=== PATIENT | female | born 1955 | race Caucasian/White ===

== ENCOUNTER 2021-06-18 12:09 | Inpatient (IN) ==
[2021-06-18 13:44] LABS: Basophils % 0.2 % (0.0-0.8); Hematocrit 32.3 VOL% (35.7-47.0); Hemoglobin 10.7 GM/DL (12.0-16.0); Immature Granulocytes Absolute 0.31 #; Lymphocytes # 1.1 10*3/uL (1.4-4.0); Lymphocytes % 7.1 % (21.3-54.2); Mean Corpuscular HGB Conc 33.1 GM/DL (32-36); Mean Corpuscular Volume 81.8 FL (87-102); Mean Platelet Volume 8.5 FL (9.6-12.0); Monocytes % 5.2 % (1.7-12.7); Neutrophils % 85.5 % (38.7-73.9); Platelet Count 583 T/CUMM (130-400); Red Blood Count 3.95 MC/CUMM (3.8-5.5); White Blood Count 15.9 T/CUMM (4-12)
[2021-06-18 14:04] LABS: Calcium 7.9 MG/DL (8.5-10.1); Osmolality,Calculated 264.2 MOS/KG (273-304); Potassium 3.6 MMOL/L (3.5-5.1)
[2021-06-18] MEDS ORDERED: DIAZEPAM 5 MG TABLET PO ONE (15:31)
[2021-06-18] MEDS ORDERED: FAMOTIDINE 20 MG TABLET PO ONE (15:31)
[2021-06-18] MEDS ORDERED: LIDOCAINE 2% 5 ML VIAL ONE (15:45)
[2021-06-18] MEDS ORDERED: propofoL 200 MG/20 ML VIAL IV ONE (15:45)
[2021-06-18] MEDS ORDERED: fentaNYL 100 MCG/2 ML VIAL ONE (15:45)
[2021-06-18] MEDS ORDERED: MIDAZOLAM 2 MG/2 ML VIAL ONE (15:45)
[2021-06-18] MEDS ORDERED: ROCURONIUM 50 MG/5 ML VIAL IV ONE (16:14)
[2021-06-18] MEDS ORDERED: SUCCINYLCHOLINE 200 MG/10 ML VIAL ONE (16:14)
[2021-06-18] MEDS ORDERED: VANCOMYCIN 1,000 MG VIAL ONE (16:29)
[2021-06-18] MEDS ORDERED: SODIUM CHLORIDE 0.9% 250 ML IV ONE (16:39)
[2021-06-18] MEDS ORDERED: SEVOFLURANE 1 UNIT/15 MINUTE INH ONE ×2 (16:39→17:40)
[2021-06-18] MEDS ORDERED: NEOSTIGMINE 10 MG/10 ML VIAL ONE (17:06)
[2021-06-18] MEDS ORDERED: GLYCOPYRROLATE 0.4 MG/2 ML VIAL ONE (17:06)
[2021-06-18] MEDS ORDERED: SUGAMMADEX 200 MG/2 ML VIAL IV ONE (17:12)
[2021-06-18] MEDS ORDERED: MAGNESIUM HYDROXIDE SUSP 30 ML UDCUP PO PRN (17:47)
[2021-06-18] MEDS ORDERED: ONDANSETRON 4 MG/2 ML VIAL IV PRN (17:48)
[2021-06-18] MEDS ORDERED: LACTULOSE 20 GM/30 ML UDCUP PO PRN (17:48)
[2021-06-18] MEDS ORDERED: PROMETHAZINE 25 MG/1 ML VIAL IM PRN (17:48)
[2021-06-18] MEDS ORDERED: BISACODYL 10 MG SUPP RECTAL PRN (17:48)
[2021-06-18] MEDS ORDERED: diphenhydrAMINE CAP 25 MG CAPSULE PO PRN (17:48)
[2021-06-18] MEDS ORDERED: traMADol 50 MG TABLET PO PRN (17:50)
[2021-06-18] MEDS ORDERED: ONDANSETRON ODT 4 MG TABLET PO PRN (17:50)
[2021-06-18] MEDS ORDERED: ACETAMINOPHEN 500 MG TABLET PO PRN (17:50)
[2021-06-18] MEDS ORDERED: PROMETHAZINE 25 MG TABLET PO PRN (17:50)
[2021-06-18] MEDS ORDERED: GLUCAGON 1 MG VIAL IM PRN (18:15)
[2021-06-18] MEDS ORDERED: DEXTROSE 10% 250 ML BAG IV PRN (19:15)
[2021-06-18] MEDS ORDERED: MORPHINE 4 MG/1 ML VIAL IV PRN ×3 (19:16→19:17)
[2021-06-18] MEDS ORDERED: SULFAMETHOX/TRIMETHOPRIM 800-160 MG TABLET PO SCH (21:00)
[2021-06-18] MEDS: SODIUM CHLORIDE 0.9% 1,000 ML IV SCH (22:10)
[2021-06-18] MEDS: PIPERACILLIN/TAZOBACTAM 3,375 MG in SODIUM CHLORIDE 0.9% 100 ML IV SCH (22:10)
[2021-06-18] MEDS: NYSTATIN 500,000 UNIT/5 ML UDCUP SWISH/SWAL SCH (22:10)
[2021-06-18] MEDS: PRAMIPEXOLE 0.375 MG PO SCH (22:11)
[2021-06-19] MEDS: INSULIN LISPRO 100 UNIT/ML SUBCUT SCH ×5 (01:33→23:43)
[2021-06-19 05:56] LABS: Basophils % 0.2 % (0.0-0.8); Hemoglobin 8.5 GM/DL (12.0-16.0); Immature Granulocytes % 1.4 %; Immature Granulocytes Absolute 0.15 #; Lymphocytes # 1.8 10*3/uL (1.4-4.0); Lymphocytes % 17.1 % (21.3-54.2); Mean Corpuscular HGB Conc 32.7 GM/DL (32-36); Mean Corpuscular Volume 81.8 FL (87-102); Mean Platelet Volume 8.6 FL (9.6-12.0); Monocytes % 7.6 % (1.7-12.7); Neutrophils % 73.7 % (38.7-73.9); Platelet Count 412 T/CUMM (130-400); Red Blood Count 3.18 MC/CUMM (3.8-5.5); Red Cell Distribution Width 14.9 % (9.3-17.3); White Blood Count 10.7 T/CUMM (4-12)
[2021-06-19] MEDS ORDERED: VANCOMYCIN INJ 1,000 MG in SODIUM CHLORIDE 0.9% 250 ML IV SCH (06:00)
[2021-06-19 06:06] LABS: Calcium 6.9 MG/DL (8.5-10.1); Osmolality,Calculated 270.4 MOS/KG (273-304)
[2021-06-19] MEDS: PIPERACILLIN/TAZOBACTAM 3,375 MG in SODIUM CHLORIDE 0.9% 100 ML IV SCH ×3 (06:26→21:04)
[2021-06-19] MEDS ORDERED: CITALOPRAM 20 MG TABLET PO SCH (09:00)
[2021-06-19] MEDS: hydroCHLOROthiazide 25 MG TABLET PO SCH (09:27)
[2021-06-19] MEDS: PIOGLITAZONE 15 MG TABLET PO SCH (09:27)
[2021-06-19] MEDS: PANTOPRAZOLE 40 MG TABLET PO SCH (09:27)
[2021-06-19] MEDS: NYSTATIN 500,000 UNIT/5 ML UDCUP SWISH/SWAL SCH ×4 (09:27→21:03)
[2021-06-19] MEDS: ASPIRIN EC 81 MG TABLET PO SCH (09:27)
[2021-06-19] MEDS: VANCOMYCIN INJ 1,500 MG in SODIUM CHLORIDE 0.9% 500 ML IV SCH (11:41)
[2021-06-19] MEDS: SODIUM CHLORIDE 0.9% 1,000 ML IV SCH (18:33)
[2021-06-19] MEDS: PRAMIPEXOLE 0.375 MG PO SCH (21:05)
[2021-06-20] MEDS: PIPERACILLIN/TAZOBACTAM 3,375 MG in SODIUM CHLORIDE 0.9% 100 ML IV SCH ×3 (05:58→21:25)
[2021-06-20] MEDS: INSULIN LISPRO 100 UNIT/ML SUBCUT SCH ×3 (06:06→17:58)
[2021-06-20] MEDS: hydroCHLOROthiazide 25 MG TABLET PO SCH (08:52)
[2021-06-20] MEDS: PANTOPRAZOLE 40 MG TABLET PO SCH (08:52)
[2021-06-20] MEDS: ASPIRIN EC 81 MG TABLET PO SCH (08:52)
[2021-06-20] MEDS: PIOGLITAZONE 15 MG TABLET PO SCH (08:53)
[2021-06-20] MEDS: NYSTATIN 500,000 UNIT/5 ML UDCUP SWISH/SWAL SCH ×4 (08:54→20:00)
[2021-06-20] MEDS: VANCOMYCIN INJ 1,500 MG in SODIUM CHLORIDE 0.9% 500 ML IV SCH (11:02)
[2021-06-20] MEDS ORDERED: POTASSIUM CHLORIDE 20 MEQ TABLET PO PRN (14:52)
[2021-06-20] MEDS ORDERED: POTASSIUM CHLORIDE 20 MEQ TABLET PO ONE (15:32)
[2021-06-20] MEDS: PRAMIPEXOLE 0.375 MG PO SCH (20:11)
[2021-06-21] MEDS: INSULIN LISPRO 100 UNIT/ML SUBCUT SCH ×4 (01:52→17:15)
[2021-06-21 06:00] LABS: Basophils % 0.3 % (0.0-0.8); Eosinophils # 0.1 10*3/uL (0.0-0.87); Eosinophils % 0.8 % (0.00-10.9); Hematocrit 29.2 VOL% (35.7-47.0); Hemoglobin 9.5 GM/DL (12.0-16.0); Immature Granulocytes % 1.8 %; Immature Granulocytes Absolute 0.17 #; Lymphocytes # 2.5 10*3/uL (1.4-4.0); Lymphocytes % 27.2 % (21.3-54.2); Mean Corpuscular HGB Conc 32.5 GM/DL (32-36); Mean Corpuscular Volume 84.6 FL (87-102); Mean Platelet Volume 8.7 FL (9.6-12.0); Monocytes % 6.9 % (1.7-12.7); Platelet Count 394 T/CUMM (130-400); Red Blood Count 3.45 MC/CUMM (3.8-5.5); White Blood Count 9.3 T/CUMM (4-12)
[2021-06-21 06:13] LABS: Osmolality,Calculated 261.8 MOS/KG (273-304); Potassium 3.1 MMOL/L (3.5-5.1)
[2021-06-21] MEDS ORDERED: propofoL 200 MG/20 ML VIAL IV ONE (06:18)
[2021-06-21] MEDS ORDERED: fentaNYL 100 MCG/2 ML VIAL ONE (06:18)
[2021-06-21] MEDS ORDERED: LIDOCAINE 2% 5 ML VIAL ONE (06:18)
[2021-06-21] MEDS ORDERED: MIDAZOLAM 2 MG/2 ML VIAL ONE (06:18)
[2021-06-21] MEDS: PIPERACILLIN/TAZOBACTAM 3,375 MG in SODIUM CHLORIDE 0.9% 100 ML IV SCH (06:22)
[2021-06-21] MEDS ORDERED: DEXTROSE 50% 25 GM/50 ML SYRINGE IV ONE (06:44)
[2021-06-21] MEDS ORDERED: LACTATED RINGERS 1,000 ML IV SCH (07:00)
[2021-06-21] MEDS ORDERED: ROCURONIUM 50 MG/5 ML VIAL IV ONE (07:14)
[2021-06-21] MEDS ORDERED: SUCCINYLCHOLINE 200 MG/10 ML VIAL ONE (07:14)
[2021-06-21] MEDS ORDERED: ETOMIDATE 40 MG/20 ML VIAL IV ONE (07:14)
[2021-06-21] MEDS ORDERED: ONDANSETRON 4 MG/2 ML VIAL ONE (07:15)
[2021-06-21] MEDS ORDERED: SEVOFLURANE 1 UNIT/15 MINUTE INH ONE (07:55)
[2021-06-21] MEDS ORDERED: GLUCAGON 1 MG VIAL IM PRN (07:56)
[2021-06-21] MEDS ORDERED: DEXTROSE 50% 25 GM/50 ML VIAL IV PRN (07:56)
[2021-06-21] MEDS ORDERED: ONDANSETRON 4 MG/2 ML VIAL IV PRN (08:31)
[2021-06-21] MEDS: HYDROmorphone 2 MG/1 ML VIAL IV PRN ×2 (08:35→08:40)
[2021-06-21] MEDS: PANTOPRAZOLE 40 MG TABLET PO SCH (09:26)
[2021-06-21] MEDS: NYSTATIN 500,000 UNIT/5 ML UDCUP SWISH/SWAL SCH ×4 (09:26→21:44)
[2021-06-21] MEDS: hydroCHLOROthiazide 25 MG TABLET PO SCH (09:26)
[2021-06-21] MEDS: ASPIRIN EC 81 MG TABLET PO SCH (09:26)
[2021-06-21] MEDS: PIOGLITAZONE 15 MG TABLET PO SCH (09:26)
[2021-06-21] MEDS: SODIUM CHLORIDE 0.9% 1,000 ML IV SCH (09:37)
[2021-06-21] MEDS ORDERED: POTASSIUM CHLORIDE 20 MEQ TABLET PO ONE ×2 (10:00→15:00)
[2021-06-21 10:03] LABS: Free T4 (Free Thyroxine) 0.92 NG/DL (0.76-1.46)
[2021-06-21] MEDS: VANCOMYCIN INJ 1,500 MG in SODIUM CHLORIDE 0.9% 500 ML IV SCH (11:02)
[2021-06-21] MEDS ORDERED: INSULIN REGULAR 100 UNIT/ML SUBCUT SCH (11:30)
[2021-06-21] MEDS: OXACILLIN 2,000 MG in SODIUM CHLORIDE 0.9% 100 ML IV SCH ×2 (14:19→21:44)
[2021-06-21] MEDS: PRAMIPEXOLE 0.375 MG PO SCH (23:47)
[2021-06-22] MEDS: INSULIN LISPRO 100 UNIT/ML SUBCUT SCH ×4 (00:57→19:14)
[2021-06-22] MEDS: OXACILLIN 2,000 MG in SODIUM CHLORIDE 0.9% 100 ML IV SCH ×4 (02:54→20:33)
[2021-06-22] MEDS: SODIUM CHLORIDE 0.9% 1,000 ML IV SCH ×2 (02:59→20:32)
[2021-06-22] MEDS: LEVOTHYROXINE 50 MCG TABLET PO SCH (05:48)
[2021-06-22] MEDS ORDERED: LEVOTHYROXINE 25 MCG TABLET PO SCH (06:30)
[2021-06-22 07:42] LABS: Basophils % 0.4 % (0.0-0.8); Eosinophils # 0.1 10*3/uL (0.0-0.87); Eosinophils % 1.4 % (0.00-10.9); Hematocrit 30.5 VOL% (35.7-47.0); Hemoglobin 9.5 GM/DL (12.0-16.0); Immature Granulocytes % 4.4 %; Immature Granulocytes Absolute 0.35 #; Lymphocytes # 1.8 10*3/uL (1.4-4.0); Lymphocytes % 22.8 % (21.3-54.2); Mean Corpuscular HGB Conc 31.1 GM/DL (32-36); Mean Corpuscular Volume 86.2 FL (87-102); Mean Platelet Volume 8.9 FL (9.6-12.0); Monocytes % 7.8 % (1.7-12.7); Neutrophils % 63.2 % (38.7-73.9); Platelet Count 305 T/CUMM (130-400); Red Blood Count 3.54 MC/CUMM (3.8-5.5); Red Cell Distribution Width 16.3 % (9.3-17.3)
[2021-06-22 07:51] LABS: Calcium 6.8 MG/DL (8.5-10.1); Osmolality,Calculated 267.5 MOS/KG (273-304); Potassium 4.1 MMOL/L (3.5-5.1)
[2021-06-22] MEDS: NYSTATIN 500,000 UNIT/5 ML UDCUP SWISH/SWAL SCH ×4 (09:35→20:32)
[2021-06-22] MEDS: POTASSIUM CHLORIDE 20 MEQ TABLET PO SCH (09:35)
[2021-06-22] MEDS: ASPIRIN EC 81 MG TABLET PO SCH (09:35)
[2021-06-22] MEDS: PIOGLITAZONE 15 MG TABLET PO SCH (09:36)
[2021-06-22] MEDS: PANTOPRAZOLE 40 MG TABLET PO SCH (09:36)
[2021-06-22] MEDS: hydroCHLOROthiazide 25 MG TABLET PO SCH (09:36)
[2021-06-22] MEDS: PRAMIPEXOLE 0.375 MG PO SCH (21:00)
[2021-06-23] MEDS: SODIUM CHLORIDE 0.9% 1,000 ML IV SCH ×2 (01:47→18:30)
[2021-06-23] MEDS: INSULIN LISPRO 100 UNIT/ML SUBCUT SCH ×4 (01:47→18:46)
[2021-06-23] MEDS: OXACILLIN 2,000 MG in SODIUM CHLORIDE 0.9% 100 ML IV SCH ×4 (03:30→20:10)
[2021-06-23] MEDS: LEVOTHYROXINE 50 MCG TABLET PO SCH (05:48)
[2021-06-23 07:13] LABS: Basophils # 0.1 10*3/uL (0.0-0.2); Basophils % 0.7 % (0.0-0.8); Eosinophils # 0.1 10*3/uL (0.0-0.87); Eosinophils % 0.7 % (0.00-10.9); Hematocrit 30.1 VOL% (35.7-47.0); Hemoglobin 9.7 GM/DL (12.0-16.0); Immature Granulocytes % 4.2 %; Immature Granulocytes Absolute 0.36 #; Lymphocytes # 2.2 10*3/uL (1.4-4.0); Lymphocytes % 26.1 % (21.3-54.2); Mean Corpuscular HGB Conc 32.2 GM/DL (32-36); Mean Corpuscular Volume 84.6 FL (87-102); Mean Platelet Volume 9.3 FL (9.6-12.0); Monocytes % 6.6 % (1.7-12.7); Neutrophils % 61.7 % (38.7-73.9); Platelet Count 283 T/CUMM (130-400); Red Blood Count 3.56 MC/CUMM (3.8-5.5); Red Cell Distribution Width 16.8 % (9.3-17.3); White Blood Count 8.5 T/CUMM (4-12)
[2021-06-23] MEDS: PIOGLITAZONE 15 MG TABLET PO SCH (08:51)
[2021-06-23] MEDS: NYSTATIN 500,000 UNIT/5 ML UDCUP SWISH/SWAL SCH ×4 (08:51→20:10)
[2021-06-23] MEDS: POTASSIUM CHLORIDE 20 MEQ TABLET PO SCH (08:51)
[2021-06-23] MEDS: PANTOPRAZOLE 40 MG TABLET PO SCH (08:51)
[2021-06-23] MEDS: hydroCHLOROthiazide 25 MG TABLET PO SCH (08:51)
[2021-06-23] MEDS: ASPIRIN EC 81 MG TABLET PO SCH (08:51)
[2021-06-23 08:56] LABS: Hypochromia 2+
[2021-06-23 08:57] LABS: Platelet Estimate Normal; Target Cells Few
[2021-06-23 09:19] LABS: Calcium 7.8 MG/DL (8.5-10.1); Osmolality,Calculated 266.8 MOS/KG (273-304); Potassium 4.9 MMOL/L (3.5-5.1)
[2021-06-23] MEDS: PRAMIPEXOLE 0.375 MG PO SCH (20:10)
[2021-06-24] MEDS: INSULIN LISPRO 100 UNIT/ML SUBCUT SCH ×4 (01:06→18:08)
[2021-06-24] MEDS: SODIUM CHLORIDE 0.9% 1,000 ML IV SCH (01:25)
[2021-06-24] MEDS: OXACILLIN 2,000 MG in SODIUM CHLORIDE 0.9% 100 ML IV SCH ×4 (03:05→21:03)
[2021-06-24 06:14] LABS: Basophils % 0.4 % (0.0-0.8); Hemoglobin 9.2 GM/DL (12.0-16.0); Immature Granulocytes % 4.7 %; Immature Granulocytes Absolute 0.45 #; Lymphocytes # 1.8 10*3/uL (1.4-4.0); Lymphocytes % 18.4 % (21.3-54.2); Mean Corpuscular HGB Conc 31.7 GM/DL (32-36); Mean Corpuscular Volume 86.6 FL (87-102); Mean Platelet Volume 8.7 FL (9.6-12.0); Monocytes % 6.5 % (1.7-12.7); Platelet Count 279 T/CUMM (130-400); Red Blood Count 3.35 MC/CUMM (3.8-5.5); Red Cell Distribution Width 17.2 % (9.3-17.3); White Blood Count 9.6 T/CUMM (4-12)
[2021-06-24] MEDS: LEVOTHYROXINE 50 MCG TABLET PO SCH (06:15)
[2021-06-24 06:35] LABS: Calcium 7.2 MG/DL (8.5-10.1); Osmolality,Calculated 271.7 MOS/KG (273-304); Potassium 4.9 MMOL/L (3.5-5.1)
[2021-06-24] MEDS: PANTOPRAZOLE 40 MG TABLET PO SCH (09:11)
[2021-06-24] MEDS: PIOGLITAZONE 15 MG TABLET PO SCH (09:11)
[2021-06-24] MEDS: ASPIRIN EC 81 MG TABLET PO SCH (09:11)
[2021-06-24] MEDS: NYSTATIN 500,000 UNIT/5 ML UDCUP SWISH/SWAL SCH ×4 (09:11→21:03)
[2021-06-24] MEDS: PRAMIPEXOLE 0.375 MG PO SCH (21:04)
[2021-06-25] MEDS: INSULIN LISPRO 100 UNIT/ML SUBCUT SCH ×4 (00:51→17:09)
[2021-06-25] MEDS: OXACILLIN 2,000 MG in SODIUM CHLORIDE 0.9% 100 ML IV SCH ×2 (02:11→08:32)
[2021-06-25] MEDS: LEVOTHYROXINE 50 MCG TABLET PO SCH (06:02)
[2021-06-25] MEDS: PANTOPRAZOLE 40 MG TABLET PO SCH (08:30)
[2021-06-25] MEDS: ASPIRIN EC 81 MG TABLET PO SCH (08:30)
[2021-06-25] MEDS: NYSTATIN 500,000 UNIT/5 ML UDCUP SWISH/SWAL SCH ×4 (08:30→20:32)
[2021-06-25] MEDS: PIOGLITAZONE 15 MG TABLET PO SCH (08:30)
[2021-06-25 11:27] LABS: Calcium 7.5 MG/DL (8.5-10.1); Osmolality,Calculated 266.8 MOS/KG (273-304); Potassium 4.4 MMOL/L (3.5-5.1)
[2021-06-25 11:40] LABS: Basophils % 0.3 % (0.0-0.8); Eosinophils % 0.1 % (0.00-10.9); Hematocrit 26.8 VOL% (35.7-47.0); Hemoglobin 8.7 GM/DL (12.0-16.0); Immature Granulocytes % 4.3 %; Lymphocytes # 1.3 10*3/uL (1.4-4.0); Lymphocytes % 19.4 % (21.3-54.2); Mean Corpuscular HGB Conc 32.5 GM/DL (32-36); Mean Corpuscular Volume 82.5 FL (87-102); Mean Platelet Volume 8.7 FL (9.6-12.0); Monocytes % 6.2 % (1.7-12.7); Neutrophils % 69.7 % (38.7-73.9); Platelet Count 240 T/CUMM (130-400); Red Blood Count 3.25 MC/CUMM (3.8-5.5); Red Cell Distribution Width 17.1 % (9.3-17.3); White Blood Count 6.9 T/CUMM (4-12)
[2021-06-25] MEDS: LACTATED RINGERS 1,000 ML IV SCH ×2 (12:28→15:10)
[2021-06-25] MEDS ORDERED: MIDAZOLAM 2 MG/2 ML VIAL ONE (13:26)
[2021-06-25] MEDS ORDERED: propofoL 200 MG/20 ML VIAL IV ONE (13:26)
[2021-06-25] MEDS ORDERED: fentaNYL 100 MCG/2 ML VIAL ONE (13:26)
[2021-06-25] MEDS ORDERED: LIDOCAINE 2% 5 ML VIAL ONE (13:26)
[2021-06-25] MEDS ORDERED: ONDANSETRON 4 MG/2 ML VIAL ONE (14:01)
[2021-06-25] MEDS ORDERED: GLUCAGON 1 MG VIAL IM PRN (14:18)
[2021-06-25] MEDS ORDERED: DEXTROSE 50% 25 GM/50 ML VIAL IV PRN (14:18)
[2021-06-25] MEDS: ceFAZolin 2,000 MG/50 ML DUPLEX IV SCH (17:15)
[2021-06-25] MEDS: PRAMIPEXOLE 0.375 MG PO SCH (20:32)
[2021-06-25] MEDS ORDERED: SODIUM CHLORIDE 0.9% 1,000 ML IV SCH (21:30)
[2021-06-26] MEDS: INSULIN LISPRO 100 UNIT/ML SUBCUT SCH ×4 (00:54→18:27)
[2021-06-26] MEDS: LEVOTHYROXINE 50 MCG TABLET PO SCH (05:36)
[2021-06-26] MEDS: ceFAZolin 2,000 MG/50 ML DUPLEX IV SCH ×2 (05:36→17:50)
[2021-06-26 06:43] LABS: Calcium 7.3 MG/DL (8.5-10.1); Osmolality,Calculated 275.4 MOS/KG (273-304); Potassium 4.2 MMOL/L (3.5-5.1)
[2021-06-26] MEDS: ASPIRIN EC 81 MG TABLET PO SCH (09:01)
[2021-06-26] MEDS: PIOGLITAZONE 15 MG TABLET PO SCH (09:01)
[2021-06-26] MEDS: PANTOPRAZOLE 40 MG TABLET PO SCH (09:01)
[2021-06-26] MEDS: NYSTATIN 500,000 UNIT/5 ML UDCUP SWISH/SWAL SCH ×3 (09:01→17:49)
[2021-06-26 16:29] VITALS: BP 129/60
== END 2021-06-26 20:04 | DRG 857 ==
LOC: N.ADMINP 12:49 → N.3E 19:09
PROVIDERS: ADMIT Orthopaedic Surgery; ATTEND Orthopaedic Surgery